=== PATIENT | female | born 1965 | race Caucasian/White ===

== ENCOUNTER 2018-07-12 13:08 | Emergency (ER) | payer OTHER ==
[2018-07-12 13:34] VITALS: BMI 26.5
--- NOTE | 2018-07-12 13:54 | PDOC ---
History of Present Illness - General Chief Complaint: Pain Stated Complaint: VOMTING,ABD PAIN Time Seen by Provider: 07/12/18 13:52 - History of Present Illness Initial Comments: 07/12/18 14:15 The patient is a 53 year old female with a PMH of hypothyroidism that presented complaining of nausea, vomiting epigastric pain that started 3 days ago. The pain is located in epigastrium, radiating to left upper abdomen, comes after eating, associated with dizziness, NBNB vomiting and heartburn. She took OTC Pepto Bismol and Alca Wilson. The patient also reports loosing around 20 lbs in 3 months, increased thirst, dizziness in the morning. She denies sick contacts, recent travel. Never had endoscopy. She denies chest pain, SOB, palpitations, diarrhea, fever, chills, dysuria. Past History - Travel Traveled outside of the country in the last 30 days: No Close contact w/someone who was outside of country & ill: No - Past Medical History Allergies/Adverse Reactions: Allergies Allergy/AdvReac Type Severity Reaction Status Date / Time No Known Allergies Allergy Verified 07/12/18 13:34 COPD: No Thyroid Disease: Yes (hypothyriod) - Family Disease History Family Disease History: Diabetes: Mother - Suicide/Smoking/Psychosocial Hx Smoking History: Never smoked Have you smoked in the past 12 months: No Information on smoking cessation initiated: No Hx Alcohol Use: No Drug/Substance Use Hx: No Substance Use Type: None Review of Systems - Review of Systems Able to Perform ROS?: Yes Constitutional: Yes: Symptoms Reported, See HPI, Loss of Appetite, Unexplained wgt Loss HEENTM: No: Symptoms Reported Respiratory: No: Symptoms reported, Cough, Shortness of Breath, Wheezing Cardiac (ROS): No: Symptoms Reported, Chest Pain, Irregular Heart Rate ABD/GI: Yes: Symptoms Reported, See HPI, Nausea, Poor Appetite, Vomiting. No: Diarrhea : No: Symptoms Reported, Dysuria Musculoskeletal: No: Symptoms Reported Neurological: Yes: Symptoms reported, Weakness, Dizziness Endocrine: Yes: Symptoms Reported, Increased Thirst, Unexplained Weight Loss *Physical Exam - Vital Signs Last Vital Signs Temp Pulse Resp BP Pulse Ox 98.5 F 72 16 130/69 100 07/12/18 13:32 07/12/18 13:32 07/12/18 13:32 07/12/18 13:32 07/12/18 13:32 - Physical Exam General Appearance: Yes: Nourished, Appropriately Dressed HEENT: positive: EOMI, SUKHJINDER Respiratory/Chest: positive: Lungs Clear, Normal Breath Sounds Cardiovascular: positive: Regular Rhythm, Regular Rate, S1, S2. negative: Murmur Gastrointestinal/Abdominal: positive: Tender (mild tenderness in epigastrium and left upper quadrant), Soft, Decreased BS. negative: Guarding, Rebound, Mass , Hepatomegaly, Spleenomegaly Moderate Sedation - Procedure Monitoring Vital Signs: Procedure Monitoring Vital Signs Temperature 98.5 F 07/12/18 13:32 Pulse Rate 72 07/12/18 13:32 Respiratory Rate 16 07/12/18 13:32 Blood Pressure 130/69 07/12/18 13:32 O2 Sat by Pulse Oximetry (%) 100 07/12/18 13:32 ED Treatment Course - LABORATORY CBC & Chemistry Diagram: 07/12/18 14:29 07/12/18 14:29 Medical Decision Making - Medical Decision Making 07/12/18 14:33 The patient is a 53 year old female with no significant PMH that presented complaining of apigastric pain after eating, nausea, vomiting, dizziness. Differential diagnosis includes GERD, gastroenteritis, less likely pancreatitis , colitis. We ordered CBC with diff, CMP, UA, fingerstick, hemoglobin A1C, lipase. We also ordered NS 1L and Pepcid. 07/12/18 16:41 Labwork came back negative. In light of recent weight loss, we recommend abdomen CT with IV contrast to rule out abdominal Ca. 07/12/18 18:10 The patient refused IV contrast. 07/12/18 18:37 The patient signed AMA. She was informed about risks of leaving against medical advice. *DC/Admit/Observation/Transfer Diagnosis at time of Disposition: Epigastric pain - Discharge Dispostion Disposition: AGAINST MEDICAL ADVICE Condition at time of disposition: Stable Decision to Admit order: No - Referrals Schedule a call back: 07/13/18 08:00 Referrals: ON STAFF,NOT [Primary Care Provider] - - Patient Instructions Printed Discharge Instructions: Go With Your Gut: When Abdominal Pain Is Something More... Additional Instructions: You were evaluated in Emergency Room for abdominal pain, vomiting and unexplained weight loss. Your laboratory tests were normal. We recommend that you wait for CT results. We recommended IV contrast for that study. Please see your primary care physician in the next few days. If you have severe abdominal pain, nausea, vomiting, bleeding, dizziness, or worsening of any of your symptoms, come back to Emergency Room as soon as possible. - Post Discharge Activity
--- NOTE | 2018-07-12 13:57 | PDOC ---
Attending Attestation - Resident Resident Name: ReggieChristiana - ED Attending Attestation I have performed the following: I have examined & evaluated the patient, The case was reviewed & discussed with the resident, I agree w/resident's findings & plan, Exceptions are as noted - HPI HPI: 53 yo F history hypothyroid presents with N/V, epigastric pain for the past 3 days. She has upper abdominal pain that is worse with eating. No cp, SOB, fever , chills, cough. She has been having increased urinary frequency with an unexplained weight loss and increased thirst. - Physicial Exam PE: GENERAL: Awake, alert, and fully oriented, in no acute distress HEAD: No signs of trauma EYES: PERRLA, EOMI, sclera anicteric, conjunctiva clear ENT: Auricles normal inspection, hearing grossly normal, nares patent, oropharynx clear without exudates. Dry mucosa NECK: Normal ROM, supple, no lymphadenopathy, JVD, or masses LUNGS: Breath sounds equal, clear to auscultation bilaterally. No wheezes, and no crackles HEART: Regular rate and rhythm, normal S1 and S2, no murmurs, rubs or gallops ABDOMEN: Soft, +epigastric/LUQ tenderness, normoactive bowel sounds. No guarding, no rebound. No masses EXTREMITIES: Normal range of motion, no edema. No clubbing or cyanosis. No cords, erythema, or tenderness NEUROLOGICAL: Cranial nerves II through XII grossly intact. Normal speech, normal gait SKIN: Warm, Dry, normal turgor, no rashes or lesions noted. - Medical Decision Making Will send labs to r/o new onset DM, as it runs in the family. Will also check LFTs and lipase. If any abnormality, will get advanced imaging.
[2018-07-12] MEDS ORDERED: FAMOTIDINE 20 MG/50 ML IVPB 20 MG/50 ML MG IVPB ONE ×2 (14:11→14:23)
[2018-07-12] MEDS ORDERED: SODIUM CHLORIDE 0.9% 500 ML INFUS.BAG IV ONE (14:11)
[2018-07-12 15:36] LABS: BASO % 0.7 % (0-2.0); EOS % 0.4 % (0-4.5); HEMATOCRIT 38.8 % (32.4-45.2); HEMOGLOBIN 12.7 GM/dL (10.7-15.3); LYMPH % 28.5 % (8-40); MCH 28.3 pg (25.7-33.7); MCHC 32.7 g/dl (32.0-36.0); MEAN CELL VOLUME 86.8 fl (80-96); MEAN PLT VOLUME 9.7 fl (7.5-11.1); MONO % 9.5 % (3.8-10.2); NEUT % 60.9 % (42.8-82.8); PLATELET COUNT 193 K/MM3 (134-434); RBC 4.47 M/mm3 (3.60-5.2); RDW 13.5 % (11.6-15.6); WHITE BLOOD COUNT 4.8 K/mm3 (4.0-10.0)
[2018-07-12 16:07] LABS: URINE APPEARANCE CLOUDY; URINE BILIRUBIN NEGATIVE (<2.0 mg/dL); URINE COLOR YELLOW; URINE GLUCOSE (UA) NEGATIVE (NEGATIVE); URINE KETONE NEGATIVE (NEGATIVE); URINE LEUK ESTERASE NEGATIVE (NEGATIVE); URINE NITRITE NEGATIVE (NEGATIVE); URINE PROTEIN NEGATIVE (NEGATIVE); URINE UROBILINOGEN NEGATIVE mg/dL (0.2-1.0)
[2018-07-12 16:20] LABS: ALBUMIN 3.7 g/dl (3.4-5.0); ALK PHOS 103 U/L (45-117); ANION GAP 8 MMOL/L (8-16); BILIRUBIN,TOTAL 0.6 mg/dL (0.2-1); BLOOD UREA NITROGEN 12 mg/dL (7-18); CALCIUM 8.8 mg/dL (8.5-10.1); CHLORIDE 106 mmol/L (98-107); CO2 27 mmol/L (21-32); CREATININE 0.8 mg/dL (0.55-1.3); GLUCOSE,RANDOM 95 mg/dL (74-106); LIPASE 105 U/L (73-393); POTASSIUM 3.7 mmol/L (3.5-5.1); SGOT/AST 17 U/L (15-37); SGPT/ALT 25 U/L (13-61); SODIUM 141 mmol/L (136-145); TOT PROT 7.7 g/dl (6.4-8.2)
--- NOTE | 2018-07-12 18:29 | PDOC ---
*Physical Exam - Vital Signs Last Vital Signs Temp Pulse Resp BP Pulse Ox 98.5 F 72 16 130/69 100 07/12/18 13:32 07/12/18 13:32 07/12/18 13:32 07/12/18 13:32 07/12/18 13:32 ED Treatment Course - LABORATORY CBC & Chemistry Diagram: 07/12/18 14:29 07/12/18 14:29 - ADDITIONAL ORDERS Additional order review: Laboratory Results 07/12/18 07/12/18 07/12/18 17:20 15:08 14:29 Sodium Potassium Chloride Carbon Dioxide Anion Gap BUN Creatinine Creat Clearance w eGFR Random Glucose Hemoglobin A1c % 5.4 Calcium Total Bilirubin AST ALT Alkaline Phosphatase Total Protein Albumin Lipase Beta HCG, Quant 2.7 Urine Color Yellow Urine Appearance Cloudy Urine pH 8.0 Ur Specific [place] 1.013 Urine Protein Negative Urine Glucose (UA) Negative Urine Ketones Negative Urine Blood Negative Urine Nitrite Negative Urine Bilirubin Negative Urine Urobilinogen Negative Ur Leukocyte Esterase Negative 07/12/18 14:29 Sodium 141 Potassium 3.7 Chloride 106 Carbon Dioxide 27 Anion Gap 8 BUN 12 Creatinine 0.8 Creat Clearance w eGFR > 60 Random Glucose 95 Hemoglobin A1c % Calcium 8.8 Total Bilirubin 0.6 AST 17 ALT 25 Alkaline Phosphatase 103 Total Protein 7.7 Albumin 3.7 Lipase 105 Beta HCG, Quant Urine Color Urine Appearance Urine pH Ur Specific [place] Urine Protein Urine Glucose (UA) Urine Ketones Urine Blood Urine Nitrite Urine Bilirubin Urine Urobilinogen Ur Leukocyte Esterase 07/12/18 14:29 RBC 4.47 MCV 86.8 MCHC 32.7 RDW 13.5 MPV 9.7 Neutrophils % 60.9 Lymphocytes % 28.5 Monocytes % 9.5 Eosinophils % 0.4 Basophils % 0.7 - Medications Given in the ED: ED Medications Discontinued Medications Generic Name Dose Route Start Last Admin Trade Name Freq PRN Reason Stop Dose Admin Famotidine/Sodium Chloride 20 mg in 50 mls @ 100 mls/hr 07/12/18 14:11 14:36 Pepcid 20 Mg Premixed Ivpb - IVPB 07/12/18 14:40 100 mls/hr ONCE ONE Administration Sodium Chloride 1,000 ml 07/12/18 14:11 07/12/18 14:36 Normal Saline - IV 07/12/18 14:12 1,000 ml ONCE ONE Administration Medical Decision Making - Medical Decision Making 07/12/18 18:29 pt refused contrast and the order was changed *DC/Admit/Observation/Transfer Diagnosis at time of Disposition: Epigastric pain - Discharge Dispostion Disposition: AGAINST MEDICAL ADVICE Condition at time of disposition: Stable - Referrals Schedule a call back: 07/13/18 08:00 Referrals: ON STAFF,NOT [Primary Care Provider] - - Patient Instructions - Post Discharge Activity
[2018-07-12 18:42] VITALS: BP 126/73; PULSE 67; TEMP 98.2
--- NOTE | 2018-07-13 15:02 | PDOC ---
Patient Follow-up (Call Back) - Post ED Follow - Up Condition at time of discharge: Stable Disposition at time of original discharge: AGAINST MEDICAL ADVICE Reason for Call Back: Abnwl. Microbiology (Left AMA Daughter called for CT report Per IOC, L renal stone ~5 mm, no hydro Per daughter pt's abd pain was diffuse, feeling better now Reason to return d/w daughter)
== END 2018-07-12 18:54 | disposition left against medical advice (07) ==
LOC: JER 13:08
PROC: 3E033GC Introduction of Other Therapeutic Substance into Peripheral Vein, Percutaneous Approach (ICD-10-PCS; principal; 2018-07-12)
PROC: 3E0337Z Introduction of Electrolytic and Water Balance Substance into Peripheral Vein, Percutaneous Approach (ICD-10-PCS; 2018-07-12)
DX: R10.13 Epigastric pain (principal)
CPT/HCPCS: 36415; 74176-TC; 80053; 81003; 83036; 83690; 84702; 85025; 96361; 96365; 99282-25